=== PATIENT | male | born 1970 | race Caucasian/White ===

== ENCOUNTER → 2024-04-02 09:55 | Outpatient (REF) | payer BC, SELFPAY ==
[2024-04-02 11:23] LABS: % Basophils 0.8 % (0-2); % Eosinophils 2.8 % (0-6); % Immature Granulocytes 0.4 % (0-0.5); % Lymphocytes 38.8 % (20.5-51.1); % Monocytes 9.3 % (1.7-9.3); % Neutrophils 47.9 % (42.2-75.2); Absolute Eosinophils 0.2 10^3/uL (0-0.7); Absolute Lymphocytes 2.1 10^3/uL (1.2-3.4); Absolute Monocytes 0.5 10^3/uL (0.1-0.6); Absolute Neutrophils 2.5 10^3/uL (1.4-6.5); Hematocrit 45.5 % (39.0-52.0); Hemoglobin 15.6 g/dL (13.0-18.0); Mean Corp Hgb Conc. 34.3 g/dL (33.0-37.0); Mean Corpuscular Hgb 31.1 pg (27.0-31.0); Mean Corpuscular Volume 90.8 fL (80.0-94.0); Nucleated Red Blood Cells % 0 % (-); Platelet Count 255 10^3/uL (130-400); Red Blood Cell Count 5.01 10^6/uL (4.70-6.10); Red Cell Dist. Width 13.2 % (11.5-14.5); White Blood Cell Count 5.3 10^3/uL (4.8-10.8)
[2024-04-02 11:47] LABS: ALT (SGPT) 31 U/L (0-50); AST (SGOT) 49 U/L (17-59); Albumin 4.9 g/dl (3.5-5.0); Alkaline Phosphatase 65 U/L (38-126); Blood Urea Nitrogen 15 mg/dl (9-20); Calcium 10.2 mg/dl (8.4-10.2); Carbon Dioxide 27 mmol/L (22-30); Chloride 99 mmol/L (98-107); Glucose 91 mg/dl (70-99); Potassium 4.6 mmol/L (3.5-5.1); Sodium 139 mmol/L (135-145); Total Bilirubin 1.1 mg/dl (0.2-1.3); Total Cholesterol 209 mg/dl (50-199); Total Protein 7.5 g/dl (6.3-8.2); Triglyceride 54 mg/dl (10-149); Very Low Density Lipoprotein 10 mg/dl (0-30); eGFR > 60.00
[2024-04-02 11:57] LABS: HDL Cholesterol 107 mg/dl; LDL Cholesterol, Calculated 92 mg/dl
[2024-04-02 12:12] LABS: PSA, Total - Screen 1.07 ng/ml (0.0-4.0)
== END ==
LOC: REG 09:55
PROVIDERS: ATTENDING PHYSICIAN Family Medicine
DX: Z12.5 Encounter for screening for malignant neoplasm of prostate (principal)
CPT/HCPCS: 36415; 80053; 80061; 85025; G0103

== ENCOUNTER 2025-06-02 03:07 | Emergency (ER) | payer BC, SELFPAY ==
[2025-06-02 03:19] VITALS: BP 135/91
--- NOTE | 2025-06-02 03:33 | ED.GENMED ---
History of Present Illness
General
Chief Complaint: Chest Pain
Source: patient
Exam Limitations: none
Time Seen by Provider: 06/02/25 03:11
Nursing documentation reviewed up to this point in time: agreed with
History of Present Illness
History of Present Illness:
54-year-old male with history of GERD presents to the ER for evaluation of chest pain. Patient reports onset of symptoms tonight and they have been ongoing for about an hour. He reports a sharp pain in the right side of his chest worse with deep
breathing. No relieving factors noted. He denies any associated shortness of breath. He does note that he is just getting over URI type symptoms�he says that for the past week or 2 he has had mild cough and congestion; he does report that last
week he had some pain in the right chest with coughing that he attributed to muscular pain; this had improved until symptoms tonight. He has not had any other acute symptoms�denies GI symptoms, swelling or pain in the legs, fever or chills. He
denies having had similar symptoms in the past.
Review of Systems
Review of Systems
All Other Systems: ROS reviewed and negative except as documented in HPI and ROS
Constitutional: Denies fever or chills
EENT: Reports other (Congestion)
Respiratory: Reports cough; Denies trouble breathing
Cardiac: Reports chest pain; Denies palpitations
ABD/GI: Denies abdominal pain, nausea, vomiting or diarrhea
: Denies flank pain
Musculoskeletal: Denies neck pain or back pain
Neurological: Denies dizzy or headache
Phy Exam
Physical Exam
Physical Exam:
General: Awake, alert, oriented x3; no acute distress
Head: Normocephalic, atraumatic
Eyes: Conjunctiva normal, sclera anicteric
Throat: Airway intact, handling secretions
Neck: Trachea midline
Lungs: Clear to auscultation bilaterally, no wheezing, rales, rhonchi
Heart: Regular rate and rhythm, no murmurs, gallops, or rubs; no crepitus
Abd: Soft, non distended, nontender
Neuro: Grossly intact, ambulatory
Skin: Warm and dry, no rash in area of concern
Extremities: No edema in extremities, warm and well-perfused
Scores
Heart Failure Risk
Heart Failure Risk Score: Not Applicable
Heart Score for Chest Pain Patients
STEMI patient?: No
History: Slightly or Non-Suspicious
ECG: Normal
Age: >45 - <65 years
Risk Factors: No Risk Factors
Troponin: </= Normal Limit
Heart Score for Chest Pain Patients: 1
Heart Score Risk: 2.5% MACE over next 6 weeks
Withdrawal Assessment of Alcohol
Withdrawal Assessment Completed?: Not applicable
Course
Orders/Labs/Results
Orders:
Orders
06/02/25 03:12
EKG [Electrocardiogram (*1)] Urgent
Reason for Study: Chest Pain
06/02/25 03:13
EKG- Treatment ONCE
CR Chest - 2 Views Urgent
Comment:
Reason For Exam: cp
06/02/25 03:37
Ketorolac [Toradol] 15 mg IV NOW STA
06/02/25 03:42
CRP [C-Reactive Protein] Urgent
D-Dimer Urgent
Troponin I Urgent
06/02/25 04:08
Complete Blood Count/With Diff Urgent
Comment: REDRAW
Comprehensive Metabolic Panel Urgent
Comment: REDRAW
Erythrocyte Sed Rate Urgent
Comment: REDRAW
06/02/25 04:54
CT Chest PE Study Urgent
Comment:
Reason For Exam: right sided chest pain, +dimer
06/02/25 06:30
Troponin I Urgent
Abnormal Lab Results
06/02/25 06/02/25
03:42 04:08
RBC 4.59 L 10^6/uL
(4.70-6.10)
Absolute Monos (auto) 0.8 H 10^3/uL
(0.1-0.6)
Lymphocytes % 18.5 L %
(20.5-51.1)
Monocytes % 11.4 H %
(1.7-9.3)
D-Dimer 0.69 H ug/mlFEU
(0.00-0.50)
Carbon Dioxide 31 H mmol/L
(22-30)
C-Reactive Protein 17.90 H mg/L
(0.0-10.00)
06/02/25 04:08
06/02/25 04:08
Vital Signs
Initial and Last Documented VS:
Initial Vital Signs
Temp Pulse Resp BP Pulse Ox
36.8 C 71 20 135/91 97
06/02/25 03:19 06/02/25 03:19 06/02/25 03:19 06/02/25 03:19 06/02/25 03:19
Last Documented Vital Signs
Temp Pulse Resp BP Pulse Ox
36.8 C 57 13 127/85 98
06/02/25 03:19 06/02/25 05:45 06/02/25 05:45 06/02/25 05:00 06/02/25 05:45
MDM/Problems Addressed
Differential Diagnosis Includes:
Costochondritis, pneumonia, pneumothorax, pleurisy, pericarditis; PE, ACS less likely
MDM/Problems Addressed:
54-year-old male presents for evaluation of atypical pleuritic chest pain on the right side that started about an hour prior to arrival. Has had recent URI symptoms the past week or 2 that had been improving until tonight. Vitals and exam as
above. EKG shows sinus rhythm with no STEMI. Plan to check labs including a CBC and a CMP, troponin, D-dimer, ESR/CRP. Check a chest x-ray. Monitor on telemetry. Toradol for pain. Reassess after the above.
Initial labs reviewed: CBC unremarkable, CMP no clinically significant abnormalities. Troponin undetectable x 1�will repeat for completeness but very low clinical suspicion for ACS. D-dimer was slightly elevated will check CT chest. Chest x-ray
was reviewed by me showed no acute abnormality.
CT chest shows no PE. He does have trace pleural effusion on the right but no other acute abnormalities. Patient clinically stable. He says he feels a lot better after Toradol. Overall suspect that this is likely costochondritis. If repeat
troponin negative can be discharged for trial of NSAIDs, follow-up with PCP on an outpatient basis. He feels very comfortable with this plan.
*Radiology
Radiology exam reviewed: preliminary read by ED provider
*Pulse Oximetry
SaO2: 97
Oxygen Mode of Delivery: Room air
Patient hypoxic: no (97%)
*EKG
Interpreted by ED Provider?: Yes
Heart Rate: 67
Rate: normal
Rhythm: sinus
[place]: normal axis
Interval: normal interval
QRS Pattern: normal QRS
Ischemia: no ischemia
*Critical Care Note
Total Time (30-74mins, 75-104mins- exclusive of procedures): Not Applicable
Data Reviewed
Review of Other/Old Records Reveals: Records and Testing (Endoscopy 2018)
Source: patient and records
ED Attending Note
-
Portions of this chart may have been created with voice recognition software.� Occasional wrong word or��sound alike� substitutions may have occurred due to the inherent limitations of voice recognition software.
Discharge Plan
Departure
Patient with high blood pressure during this ER visit?: No
Discharge Problem:
Chest pain
Instructions: Chest Pain PCP Follow Up
Referrals:
Micahel Murdock MD [Family Provider, Family Practice] - Follow up in 1 week
Activity Restrictions/Additional Instructions:
Thank you for visiting the Emergency Department at [facility].
1. Please schedule a follow up appointment as directed. Call first thing tomorrow morning to make an appointment.
2. If indicated, please take your medications as instructed and indicated on discharge paperwork.
3. If any of your symptoms do not improve, or persist, or become more severe within 6-12 hours, please return to the emergency department for further care.
4. Please return to the emergency department if you develop a headache, neck pain/stiffness, fever greater than 100.4F, chest pain, shortness of breath, persistent nausea, vomiting, slurred speech, difficulty walking, numbness/tingling, weakness,
signs of infection or any other symptoms that are worrisome to you.
Please call [phone] if you have any questions.
Interventions
Interventions:
*Risk Screen - Suicide Last Done: 06/02/25 03:19
*General Assessment Last Done: 06/02/25 03:19
*Neglect/Abuse Screening Last Done: 06/02/25 03:19
*ED- Fall Risk Assessment Last Done: 06/02/25 03:19
*ED COVID-19 Vaccine History Last Done: 06/02/25 03:19
*ED Influenza Vaccine History Last Done: 06/02/25 03:19
ED- Cardiac Assessment Last Done: 06/02/25 03:34
Discharge Date and Time
Print Language: UPPER SORBIAN
[2025-06-02 03:34] VITALS: BMI 30.9
[2025-06-02] MEDS: TORADOL 15 MG IV (03:51)
[2025-06-02 03:54] VITALS: BP 129/85
[2025-06-02 04:11] LABS: C-Reactive Protein 17.90 mg/L (0.0-10.00)
[2025-06-02 04:17] VITALS: BP 132/82
[2025-06-02 04:20] LABS: Troponin I < 0.012 ng/ml
[2025-06-02 04:31] LABS: Hematocrit 40.6 % (39.0-52.0); Hemoglobin 13.7 g/dL (13.0-18.0); Mean Corp Hgb Conc. 33.7 g/dL (33.0-37.0); Mean Corpuscular Volume 88.5 fL (80.0-94.0); Nucleated Red Blood Cells % 0 % (-); Platelet Count 324 10^3/uL (130-400); Red Cell Dist. Width 12.7 % (11.5-14.5)
[2025-06-02 04:47] LABS: D-Dimer 0.69 ug/mlFEU (0.00-0.50)
[2025-06-02 04:47] LABS: ALT (SGPT) 28 U/L (0-50); AST (SGOT) 31 U/L (17-59); Albumin 3.9 g/dl (3.5-5.0); Alkaline Phosphatase 67 U/L (38-126); Blood Urea Nitrogen 15 mg/dl (9-20); Calcium 9.3 mg/dl (8.4-10.2); Carbon Dioxide 31 mmol/L (22-30); Chloride 106 mmol/L (98-107); Estimated Creatinine Clearance 119 ml/min; Glucose 95 mg/dl (70-99); Potassium 4.5 mmol/L (3.5-5.1); Sodium 137 mmol/L (135-145); Total Protein 6.8 g/dl (6.3-8.2); eGFR > 60.00
[2025-06-02 05:00] VITALS: BP 127/85
[2025-06-02 07:10] LABS: Troponin I < 0.012 ng/ml
--- NOTE | 2025-06-02 07:44 | EDRN ---
Reviewed discharge instructions with patient. Verbalized understanding. Ambulated with steady gait to the lobby.
[2025-06-02 07:49] VITALS: BP 132/86
== END 2025-06-02 07:50 | disposition home or self-care (01) ==
LOC: EMR 03:07
PROVIDERS: EMERGENCY PHYSICIAN Emergency Medicine; FAMILY PHYSICIAN Family Medicine
DX: R07.9 Chest pain, unspecified (principal); J90 Pleural effusion, not elsewhere classified; K21.9 Gastro-esophageal reflux disease without esophagitis
CPT/HCPCS: 99284; 96374; 71046; 71275; 80053; 84484; 85025; 85379; 85652; 86140; 93005; Q9967